=== PATIENT | male | born 2000 | race African-American/Black ===

== ENCOUNTER 2022-05-14 13:31 | Emergency (ER) | payer MEDICAID, SELFPAY ==
[2022-05-14 13:33] VITALS: BP 132/76; PULSE 77; RESP 18; TEMP 36.9; O2SAT 99; BMI 21.2
--- NOTE | 2022-05-14 14:50 | PC.NURSE ---
pt moved to room 5 to be placed on heart monitor during mag infusion.
[2022-05-14 15:00] VITALS: BP 110/71; PULSE 56; RESP 21; O2SAT 100
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
[2022-05-14 15:12] LABS: Basophils # 0.1 K/mm3 (0-0.2); Basophils % 0.7 % (0.1-2.0); Eosinophils # 0.1 K/mm3 (0.0-0.4); Eosinophils % 1.1 % (0.1-12.0); Hematocrit 45.8 % (42.0-52.0); Hemoglobin 14.9 g/dL (14.1-18.0); Lymphocytes # 2.4 K/mm3 (0.7-4.5); Lymphocytes % 38.3 % (10-50); Mean Corpuscular HGB Conc 32.5 g/dL (31.8-35.4); Mean Corpuscular Hemoglobin 27.8 pg (27.0-31.2); Mean Corpuscular Volume 85.4 fl (80-94); Mean Platelet Volume 7.7 fl (7.4-10.4); Monocytes # 0.3 K/mm3 (0.1-1.0); Monocytes % 5.1 % (1.7-9.3); Neutrophils # 3.4 K/mm3 (1.8-7.8); Neutrophils % 54.7 % (37.0-80.0); Platelet Count 226 K/mm3 (142-424); Red Blood Count 5.37 M/mm3 (4.60-6.20); Red Cell Distribution Width 13.9 % (11.5-17.5); White Blood Count 6.3 K/mm3 (4.8-10.8)
[2022-05-14 15:14] LABS: Alanine Aminotransferase 19 U/L (12-78); Albumin Level 4.1 g/dl (3.5-5.0); Albumin/Globulin Ratio 1.5 (1.1-1.8); Alkaline Phosphatase 60 U/L (38-126); Anion Gap 6.1 mEq/L (5-15); Aspartate Amino Transferase 31 U/L (17-59); Bilirubin,Total 0.3 mg/dl (0.2-1.3); Blood Urea Nitrogen 7 mg/dl (9-20); Calcium 9.2 mg/dl (8.4-10.2); Carbon Dioxide 32 mmol/L (22.0-30.0); Chloride 104 mmol/L (98-107); Creatinine Clearance Estimated 106 mL/min (50-200); Estimated Glomerular Filt Rate 76 ml/min (>60); GFR (African American) 92 ML/MIN (>60); Globulin 2.7 g/dL (1.3-3.2); Glucose 93 mg/dl (74-100); Potassium 4.1 mmoL/L (3.5-5.1); Sodium 138 mmol/L (136-145); Total Protein,Serum 6.8 g/dl (6.3-8.2)
[2022-05-14 15:30] VITALS: BP 99/60; PULSE 58; RESP 15; O2SAT 95
--- NOTE | 2022-05-14 15:40 | PC.NURSE ---
rounded on pt, pt sleeping at this time
--- NOTE | 2022-05-14 15:54 | PC.NURSE ---
PT SLEEPING SOUNDLY, WARM BLANKET PROVIDED. PT WITHOUT NEEDS
--- NOTE | 2022-05-14 15:55 | CT_ITS ---
FINAL REPORT CLINICAL HISTORY: headache FINDINGS: Axial images of the head were obtained without contrast. Coronal reformatted images were also obtained.This study was performed with techniques to keep radiation doses as low as reasonably achievable (ALARA). Individualized dose reduction techniques using automated exposure control or adjustment of mA and/or kV according to the patient''s size were employed. There is no evidence of intracranial hemorrhage or mass. The ventricular size is within normal limits. There is no evidence of shift of the midline structures. No abnormal extra axial fluid collection is identified. No skull abnormality is seen on the bone window images. Note is made of a retention cyst or polyp in the right maxillary sinus. IMPRESSION: No acute intracranial abnormality. Authenticated and ERN
[2022-05-14 16:00] VITALS: BP 105/71; PULSE 60; RESP 18; O2SAT 98
--- NOTE | 2022-05-14 17:33 | PC.NURSE ---
up to bathroom
[2022-05-14 17:34] VITALS: BP 148/82; PULSE 60; RESP 16; TEMP 36.8; O2SAT 100
== END 2022-05-14 17:35 | disposition home or self-care (01) ==
PROVIDERS: Emergency Provider Student in an Organized Health Care Education/Training Program; PCP Family Medicine
DX: G43.909 Migraine, unspecified, not intractable, without status migrainosus (principal); H53.8 Other visual disturbances; W22.8XXA Striking against or struck by other objects, initial encounter
CPT/HCPCS: 70450; 80053; 85025; 96361; 96374; 96375; 99285; J3475